=== PATIENT | female | born 1995 | race African-American/Black ===

== ENCOUNTER 2017-04-05 09:12 | Emergency (ER) | payer MEDICAID ==
[~2017-04-05] VITALS: Ht 188 cm; Wt 72.1 kg
[2017-04-05 09:19] VITALS: BP 109/80
== END 2017-04-05 11:28 | disposition home or self-care (01) ==
LOC: ER 09:12
DX: J20.9 Acute bronchitis, unspecified (principal)

== ENCOUNTER 2019-04-01 16:04 | Emergency (ER) | payer SELFPAY ==
[~2019-04-01] VITALS: Ht 190.5 cm; Wt 69.9 kg
[2019-04-01 16:56] VITALS: BP 127/66
[2019-04-01] MEDS ORDERED: KETOROLAC TROMETH 60MG/2ML VIAL IM ONE (17:30)
== END 2019-04-01 18:17 | disposition home or self-care (01) ==
LOC: ER 16:04
DX: H66.92 Otitis media, unspecified, left ear (principal); G43.909 Migraine, unspecified, not intractable, without status migrainosus
CPT/HCPCS: 96372; 99283; J1885

== ENCOUNTER 2020-02-07 06:33 | Emergency (ER) | payer MEDICAID ==
[~2020-02-07] VITALS: Ht 190.5 cm; Wt 70.8 kg
[2020-02-07 07:26] VITALS: BP 138/74
[2020-02-07 07:53] LABS: Urine Bacteria FEW /hpf (None Seen); Urine Blood 3+ /uL (Negative); Urine Mucus FEW (None Seen); Urine Specific Gravity 1.016 (1.001-1.035); Urine WBC 2 /hpf (0 - 5)
== END 2020-02-07 08:29 | disposition home or self-care (01) ==
LOC: ER 06:33
DX: N39.0 Urinary tract infection, site not specified (principal); M54.5 Low back pain
CPT/HCPCS: 71046; 81001

== ENCOUNTER 2020-08-02 14:08 | Emergency (ER) | payer MEDICAID ==
[~2020-08-02] VITALS: Ht 190.5 cm; Wt 71.2 kg
[2020-08-02] MEDS ORDERED: HYDROcodone-ACET 10/325MG TAB PO ONE (14:45)
[2020-08-02 14:55] VITALS: BP 114/65
== END 2020-08-02 15:58 | disposition home or self-care (01) ==
LOC: ER 14:08
DX: S86.912A Strain of unspecified muscle(s) and tendon(s) at lower leg level, left leg, initial encounter (principal); X58.XXXA Exposure to other specified factors, initial encounter; Y93.67 Activity, basketball; Y92.89 Other specified places as the place of occurrence of the external cause; Y99.8 Other external cause status
CPT/HCPCS: 29505; 73562

== ENCOUNTER 2021-01-17 21:23 | Emergency (ER) | payer MEDICAID ==
[~2021-01-17] VITALS: Ht 190.5 cm; Wt 69.9 kg
[2021-01-17 22:45] VITALS: BP 121/71
== END 2021-01-17 22:55 | disposition home or self-care (01) ==
LOC: ER 21:24
DX: J03.80 Acute tonsillitis due to other specified organisms (principal); B96.89 Other specified bacterial agents as the cause of diseases classified elsewhere; R51.9 Headache, unspecified; R09.81 Nasal congestion; Z20.822 Contact with and (suspected) exposure to COVID-19
CPT/HCPCS: 36415; 87426

== ENCOUNTER 2021-01-19 07:34 | Emergency (ER) | payer MEDICAID ==
[~2021-01-19] VITALS: Ht 190.5 cm; Wt 69.9 kg
[2021-01-19 08:14] VITALS: BP 130/73
[2021-01-19 08:23] LABS: Urine WBC None Seen /hpf (0 - 5)
[2021-01-19 08:32] LABS: Urine Bacteria NONE SEEN /hpf (None Seen); Urine Blood Negative /uL (Negative); Urine Specific Gravity 1.007 (1.001-1.035)
[2021-01-19] MEDS ORDERED: KETOROLAC TROMETH 60MG/2ML VIAL IM ONE (08:45)
== END 2021-01-19 09:34 | disposition home or self-care (01) ==
LOC: ER 07:34
DX: S39.012A Strain of muscle, fascia and tendon of lower back, initial encounter (principal); F12.10 Cannabis abuse, uncomplicated; Z32.02 Encounter for pregnancy test, result negative; X50.0XXA Overexertion from strenuous movement or load, initial encounter; Y93.89 Activity, other specified; Y92.89 Other specified places as the place of occurrence of the external cause; Y99.8 Other external cause status
CPT/HCPCS: 81001; 81025; 96372; 99283; J1885

== ENCOUNTER 2021-03-28 06:18 | Emergency (ER) | payer MEDICAID ==
[~2021-03-28] VITALS: Ht 190.5 cm; Wt 69.9 kg
[2021-03-28 08:55] VITALS: BP 144/51
== END 2021-03-28 09:34 | disposition home or self-care (01) ==
LOC: ER 06:18
DX: S63.502A Unspecified sprain of left wrist, initial encounter (principal); X58.XXXA Exposure to other specified factors, initial encounter; Y93.89 Activity, other specified; Y92.89 Other specified places as the place of occurrence of the external cause; Y99.8 Other external cause status
CPT/HCPCS: 29125; 73110; 73130

== ENCOUNTER 2022-02-06 19:01 | Emergency (ER) | payer MEDICAID ==
[~2022-02-06] VITALS: Ht 154.9 cm; Wt 78.0 kg
[2022-02-06] MEDS ORDERED: KETOROLAC TROMETH 60MG/2ML VIAL IM ONE (22:45)
[2022-02-06 23:08] VITALS: BP 118/68
== END 2022-02-06 23:08 | disposition home or self-care (01) ==
LOC: ER 19:01
DX: S16.1XXA Strain of muscle, fascia and tendon at neck level, initial encounter (principal); M54.6 Pain in thoracic spine; V43.62XA Car passenger injured in collision with other type car in traffic accident, initial encounter; Y93.89 Activity, other specified; Y92.89 Other specified places as the place of occurrence of the external cause; Y99.8 Other external cause status
CPT/HCPCS: 71046; 72040; 72070; 96372; 99284; J1885

== ENCOUNTER 2024-12-03 22:21 | Emergency (ER) | payer MEDICAID ==
[~2024-12-03] VITALS: Ht 185.4 cm; Wt 78.8 kg
[2024-12-03] MEDS: ACETAMINOPHEN 325 MG TAB PO ONE (23:08)
[2024-12-03 23:09] LABS: Urine Protein, UAD Negative (Negative)
[2024-12-03 23:10] VITALS: BP 125/73; PULSE 88; RESP 17; TEMP 100.7; O2SAT 97
[2024-12-03] MEDS ORDERED: ACET500T58 PO (23:16)
[2024-12-03] MEDS ORDERED: AMOX875T4 PO (23:16)
--- NOTE | 2024-12-03 23:17 | ED.PDOC ---
History of Present Illness HPI Comments 29-year-old female presents to ER with complaints of flu-like symptoms x2 days. Patient reports that she has been experiencing intermittent fever, body aches, sore throat, right-sided earache pain and intermittent diarrhea x2 days. Denies use of medications for current symptoms. Patient presents to ER febrile on arrival at 100.1 F, ambulatory, with steady gait, in no distress. Denies cough, shortness of breath, headache, dizziness, nausea/vomiting, abdominal pain, changes in urination, bloody diarrhea or any further symptoms/complaints Chief Complaint: Flu like Time Seen by MD: 22:30 Primary Care Provider: UNKNOWN Reviewed Notes: Nurses Notes, Medications, Allergies Information Source: Patient Mode of Arrival: Ambulatory Past Medical History PAST MEDICAL HISTORY: Denies Surgical History (Other): Left wrist surgery CLINICAL SAFETY MANAGER History: Denies all CLINICAL SAFETY MANAGER Hx Family History Family History: Unknown Social History Smoker: Non-Smoker, Other Alcohol: Occasionally Drugs: Marijuana Lives In: Home Constitutional: See HPI EENTM: See HPI Respiratory: See HPI Cardiovascular: No Symptoms Reported Gastrointestinal: See HPI Genitourinary: No Symptoms Reported Neurological: No Symptoms Reported Musculoskeletal: No Symptoms Reported Integumentary: No Symptoms Reported Allergic/Immunocompromised: others (denies) Hematologic/Lymphatic: No Symptoms Reported Endocrine: No Symptoms Reported Psychiatric: No symptoms Reported Physical Exam General Appearance: No Apparent Distress HEENT: PERRL/EOMI, Pharynx Normal, Other (Mild erythema/bulging noted to right TM. Remainder bilateral ear exam-unremarkable) Neck: Full Range of Motion, Non-Tender, Normal Respiratory: Chest Non-Tender, Lungs Clear, No Accessory Muscle Use, No Respiratory Distress, Normal Breath Sounds Cardiovascular: No Murmur, No Gallop, Regular Rate/Rhythm Breast Exam: Deferred Gastrointestinal: Non Tender, No Pulsatile Mass, Soft Genitalia: Deferred Pelvic: Deferred Rectal: Deferred Extremities: Normal capillary refill, Normal range of motion Neurologic: Alert, baggage handler II-XII nml as Tested, No Motor Deficits, Normal Affect, Normal Mood, No Sensory Deficits Cerebellar Function: Normal Reflexes: Normal Skin: Dry, Normal Color, Warm Peripheral Pulses: 2+ Radial (R), 2+ Radial (L), 2+ Brachial (R), 2+ Brachial (L) Lymphatic: No Adenopathy Was a procedure done? Was a procedure done?: No Sedation Sedation?: No Fever Differential Dx Differential Diagnosis: Pneumonia, Sepsis, UTI, Pharyngitis, Other (COVID-19, influenza) X-Ray, Labs, Meds, VS Vital Signs Date Time Temp Pulse Resp B/P (MAP) Pulse Ox O2 Delivery O2 Flow Rate FiO2 12/03/24 23:10 100.7 88 17 125/73 (90) 97 100.7 12/03/24 23:10 88 17 97 Room Air 12/03/24 23:08 100.7 12/03/24 22:23 100.1 94 20 120/51 95 100.1 Lab Test 12/03/24 22:47 12/03/24 22:41 Range/Units Urine Color Colorless Yellow Urine Clarity Clear Clear Urine pH 7.0 5.0-9.0 Urine Specific [place] 1.007 1.001-1.035 Urine Protein Negative Negative Urine Ketones Negative Negative Urine Blood Negative Negative /uL Urine Nitrite Negative Negative Urine Bilirubin Negative Negative Urine Urobilinogen Normal Negative mg/dL Urine Leukocyte Esterase Negative Negative /uL Urine RBC None seen 0 - 4 /hpf Urine Microscopic WBC < 1 0-5 /HPF Urine Squamous Epithelial Cells Few <5 /hpf Urine Bacteria Few H None Seen /hpf Urine Glucose Normal Normal mg/dL Urine Test Negative Negative Influenza Type A Antigen Negative Negative Influenza Type B Antigen Negative Negative SARS-CoV-2 Antigen (Rapid) Negative NEGATIVE Current Medications Medications (Trade) Dose Ordered Sig/Zunilda Route Start Time Stop Time Status Last Admin Acetaminophen (Tylenol Tablet) 650 mg ONCE ONCE PO 12/03/24 22:30 12/03/24 22:32 DC 12/03/24 23:08 Urine reviewed-negative Urinalysis reviewed without any significant abnormalities Swab results reviewed-negative Tylenol 650 mg p.o. ordered Patient had improvement in symptoms and in no distress prior to discharge Advised to drink plenty of fluids Advised to follow up with PCP in 1-2 days Patient verbalized understanding and agreeable with current plan of care Advised to return to ER immediately if symptoms worsen Time of 1ST Reevaluation: 23:12 Reevaluation 1ST: N/A Patient Education/Counseling: Diagnosis, Treatment, Prognosis, Need For Follow Up Family Education/Counseling: No Family Present SEPSIS Sepsis Screen Date sepsis recognized/suspect: Dec 03, 2024 Time Sepsis recognized/suspect: 2228 Recent Procedure: No On Antibiotic Therapy: No Respiratory Rate >20: No Heart Rate >90: No Temp<36 C (96.8 F) or >38.3 C: No SBP <90 or MAP <65 mmHG: No New Acute Mental Status Change: No Is the patient on CPAP, BIPAP,: No Vital Signs Date Time Temp Pulse Resp B/P (MAP) Pulse Ox O2 Delivery O2 Flow Rate FiO2 12/03/24 23:10 100.7 88 17 125/73 (90) 97 100.7 12/03/24 23:10 88 17 97 Room Air 12/03/24 23:08 100.7 12/03/24 22:23 100.1 94 20 120/51 95 100.1 Medications Medications Dose Ordered Sig/Zunilda Route Start Time Stop Time Status Last Admin Dose Admin Acetaminophen 650 mg ONCE ONCE PO 12/03/24 22:30 12/03/24 22:32 DC 12/03/24 23:08 Departure 1 Departure Time of Disposition: 23:34 Impression: Primary Impression: Otitis media of right ear Qualified Codes: H66.91 - Otitis media, unspecified, right ear Additional Impression: Viral gastroenteritis Disposition: HOME / SELF CARE / HOMELESS Condition: Stable e-Prescriptions Ibuprofen (Ibuprofen) 800 Mg Tab 1 TAB PO TID PRN, #30 TAB 0 Refills Prov: HECTOR BHATIA 12/03/24 Amoxicillin & Pot Clavulanate (Amoxicillin/Potassium Cla) 875 Mg Tab 1 TAB PO BID for 7 Days, #14 TAB 0 Refills Prov: HECTOR BHATIA 12/03/24 Discharged With: Self Critical Care Note Critical Care Time?: No Stability Stability form required: No Heart Score Heart Score: Heart Score Response (Comments) Value History N/A 0 EKG N/A 0 Age N/A 0 Risk Factors N/A 0 Troponin N/A 0 Total 0 HECTOR BHATIA Dec 03, 2024 23:17
[2024-12-03 23:25] LABS: COVID19 ANTIGEN SOFIA FIA NEGATIVE (NEGATIVE)
[2024-12-03] MEDS ORDERED: IBUP-1456 PO (23:38)
== END 2024-12-03 23:40 | disposition home or self-care (01) ==
LOC: ER 22:21
DX: H66.91 Otitis media, unspecified, right ear (principal); A08.4 Viral intestinal infection, unspecified; Z98.890 Other specified postprocedural states; Z20.822 Contact with and (suspected) exposure to COVID-19
CPT/HCPCS: 36415; 81001; 81025; 87426; 87804